=== PATIENT | female | born 1960 | race Caucasian/White ===

== ENCOUNTER → 2017-11-10 | Outpatient (CLI) | payer OTHER ==
--- NOTE | 2017-11-10 15:53 | RADIOLOGY IMAGING REPORT ---
FACILITY: [facility] - [place] PATIENT NAME: KATERYNA QUINONEZ : [id number] MR: [id number] V: [id number] EXAM DATE: ORDERING PHYSICIAN: SIMRAN JONES TECHNOLOGIST: Kim Lewis PROCEDURE:BILATERAL DIGITAL SCREENING MAMMOGRAM WITH CAD ASSISTED INTERPRETATION & 3D TOMOSYNTHESIS COMPARISON:Prior mammograms 03/12/16, 01/22/15, 01/17/15, 12/04/13, 11/24/12, 09/30/11 INDICATIONS:screening FINDINGS: Moderately heterogeneous fibroglandular tissue is seen throughout the breasts. The parenchymal pattern has remained stable allowing for difference in mammographic technique & patient positioning. There is no evidence of malignant appearing mass, malignant appearing calcifications or other secondary sign of malignancy in either breast. DIAGNOSTIC CATEGORY 2--BENIGN FINDING. RECOMMENDATIONS: ROUTINE MAMMOGRAM AND CLINICAL EVALUATION. IMPRESSION: BIRADS 2: Benign finding No significant abnormality is seen Dictated by: Milana Rooney M.D. on 11/10/2017 at 11:49 Transcribed by: LARRY on 11/10/2017 at 13:04 Approved by: Milana Rooney M.D. on 11/10/2017 at 15:51 [facility]
== END ==
LOC: MAMO 00:38
PROVIDERS: ATTEND Family Medicine
DX: Z12.31 Encounter for screening mammogram for malignant neoplasm of breast (principal)
CPT/HCPCS: 77063; 77067

== ENCOUNTER → 2019-01-11 | Outpatient (CLI) | payer OTHER ==
--- NOTE | 2019-01-11 16:21 | RADIOLOGY IMAGING REPORT ---
[place] [facility] [place]IENT NAME: KATERYNA QUINONEZ : [id number] MR: [id number] V: [id number] EXAM DATE: [id number] ORDERING PHYSICIAN: SIMRAN JONES TECHNOLOGIST: Cynthia Ling PROCEDURE: BILATERAL DIGITAL SCREENING MAMMOGRAM WITH CAD ASSISTED INTERPRETATION & 3D TOMOSYNTHESIS REASON FOR STUDY: Screening. FAMILY HISTORY OF BREAST CANCER: Paternal aunt. COMPARISON: Prior mammograms 11/24/2012 back to 11/10/2017. VIEWS OBTAINED: D & 3D full field CC & MLO. BREAST DENSITY: The breasts are heterogeneously dense that could obscure small masses. MAMMOGRAM FINDINGS: There are no mass lesions, architectural distortions, or any clustering of suspicious microcalcifications. No interval change when compared to the previous study. IMPRESSION: BIRADS 1: Negative. DIAGNOSTIC CATEGORY 1--NEGATIVE. RECOMMENDATIONS: ROUTINE MAMMOGRAM AND CLINICAL EVALUATION IN 1 YEAR. Dictated by: Jared Fuentes M.D. on 01/11/2019 at 15:19 Transcribed by: LARRY on 01/11/2019 at 15:27 Approved by: Jared Fuentes M.D. on 01/11/2019 at 16:20 [facility]
== END ==
LOC: MAMO 01:31
PROVIDERS: ATTEND Family Medicine
DX: Z12.31 Encounter for screening mammogram for malignant neoplasm of breast (principal)
CPT/HCPCS: 77063; 77067